=== PATIENT | male | born 1985 | race Caucasian/White ===

== ENCOUNTER 2025-02-15 08:54 | Emergency (ER) | payer SELFPAY ==
[~2025-02-15] VITALS: Ht 170.2 cm; Wt 82.0 kg
[2025-02-15 09:14] VITALS: BP 137/88; PULSE 122; RESP 18; TEMP 98.5; O2SAT 99
[2025-02-15 09:27] LABS: COVID AG,FIA SOURCE NASAL SWAB
[2025-02-15 09:31] LABS: PLATELET COUNT (AUTO) 348 K/uL (150-450); RED BLOOD CELL COUNT(AUTO) 4.90 MIL/uL (4.50-5.90); RED CELL DISTRIBUTION WIDTH 13.1 % (11.5-14.5); WHITE BLOOD COUNT (AUTO) 8.9 K/uL (4.5-11.0)
[2025-02-15 09:39] LABS: CALCIUM, TOTAL 9.3 mg/dL (8.8-10.5); CREATININE 0.85 mg/dL (0.60-1.30); GLOMERULAR FILTR. RATE CALC > 60 mL/min (>60); GLUCOSE,RANDOM 111 mg/dL (70-110); SODIUM SERUM 141 mmol/L (136-145); UREA NITROGEN, BLOOD 9 mg/dL (7-18)
[2025-02-15 09:53] LABS: SARS-COV2 (COVID) ANTIGEN,FIA Negative (Negative)
[2025-02-15 10:55] LABS: PH,URINE DRUG SCREEN 6.5 (5.0-8.0)
[2025-02-15 11:07] LABS: ALCOHOL, URINE DRUG SCREEN NEGATIVE (NEGATIVE); AMPHET/METH SCREEN,URINE POSITIVE (NEGATIVE); BARBITURATE SCREEN, URINE NEGATIVE (NEGATIVE); CANNABINOID SCREEN,URINE NEGATIVE (NEGATIVE); COCAINE SCREEN,URINE NEGATIVE (NEGATIVE); METHADONE SCREEN, URINE NEGATIVE (NEGATIVE)
== END 2025-02-15 11:35 | disposition home or self-care (01) ==
LOC: EMS 08:54
DX: F15.10 Other stimulant abuse, uncomplicated (principal); F22 Delusional disorders; Z98.890 Other specified postprocedural states; Z20.822 Contact with and (suspected) exposure to COVID-19
CPT/HCPCS: 99285; 87426; 80048; 85025; 36415; 80307; G0480